=== PATIENT | female | born 1940 | race Caucasian/White ===

== ENCOUNTER → 2017-01-01 | Outpatient (CLI) | payer MEDICARE | END | disposition home or self-care (01) | LOC: CFH 09:49 | PROVIDERS: ATTEND Radiology Radiation Oncology | DX: D33.3 Benign neoplasm of cranial nerves (principal); I67.82 Cerebral ischemia; R90.82 White matter disease, unspecified | CPT/HCPCS: 70553; 82565 ==

== ENCOUNTER → 2017-01-10 | Outpatient (CLI) | payer MEDICARE | END | disposition home or self-care (01) | LOC: ROC 08:27 | PROVIDERS: ATTEND Radiology Radiation Oncology | DX: Z08 Encounter for follow-up examination after completed treatment for malignant neoplasm (principal); D33.3 Benign neoplasm of cranial nerves | CPT/HCPCS: G0463 ==

== ENCOUNTER → 2017-03-06 | Outpatient (CLI) | payer MEDICARE | END | disposition home or self-care (01) | LOC: CFH 10:42 | PROVIDERS: ATTEND Nurse Practitioner Family | DX: Z12.31 Encounter for screening mammogram for malignant neoplasm of breast (principal); M85.88 Other specified disorders of bone density and structure, other site | CPT/HCPCS: 77080; G0202 ==

== ENCOUNTER 2017-07-09 11:29 | Inpatient (IN) | payer MEDICARE ==
[~2017-07-09] VITALS: Ht 162.6 cm; Wt 70.2 kg
[2017-07-09] MEDS ORDERED: FENTANYL PF 100 MCG/2ML ONE ×4 (12:57→17:02)
[2017-07-09] MEDS: FENTANYL PF 100 MCG/2ML IVPush PRN ×2 (12:59→14:12)
[2017-07-09] MEDS ORDERED: SODIUM CHLORIDE FLUSH 10ML SYR IVF ONE (13:00)
[2017-07-09 13:07] LABS: BASOPHILS # (AUTO) 0.02 x10^3/uL (0-0.1); BASOPHILS % (AUTO) 0 % (0-1); EOSINOPHILS # (AUTO) 0.03 x10^3/uL (0-0.4); EOSINOPHILS % (AUTO) 0 % (1-7); LYMPHOCYTES # (AUTO) 0.88 x10^3/uL (1-3.4); LYMPHOCYTES % (AUTO) 13 % (22-44); MD NO; MEAN CORPUSCULAR HEMOGLOBIN 29.4 pg (27.0-34.8); MEAN CORPUSCULAR HGB CONC 33.2 g/dL (32.4-35.8); MEAN CORPUSCULAR VOLUME 88.7 fL (80-100); MEAN PLATELET VOLUME 8.3 fL (7.4-10.4); MONOCYTES # (AUTO) 0.34 x10^3/uL (0.2-0.8); MONOCYTES % (AUTO) 5 % (2-9); NEUTROPHILS # (AUTO) 5.78 x10^3/uL (1.8-6.8); NEUTROPHILS % (AUTO) 82 % (42-75); PLATELET COUNT 195 x10^3/uL (130-400); RED BLOOD COUNT 4.98 x10^6/uL (3.82-5.3)
[2017-07-09 13:14] LABS: INTERNATIONAL NORMALIZED RATIO 1.08 (0.93-1.1); PROTHROMBIN TIME 11.1 Seconds (9.6-11.5)
[2017-07-09] MEDS ORDERED: NS + 20MEQ KCL 1,000 ML IV SCH (13:17)
[2017-07-09 13:19] LABS: ALANINE AMINOTRANSFERASE 20 U/L (12-78); ALBUMIN 3.5 g/dL (3.4-5.0); ANION GAP 6 mmol/L (5-15); CHLORIDE 109 mmol/L (98-107); CREATININE 0.85 mg/dL (0.55-1.02)
[2017-07-09] MEDS ORDERED: ONDANSETRON 2MG/ML, 2ML ONE ×3 (13:21→17:05)
[2017-07-09 13:22] LABS: ALKALINE PHOSPHATASE 89 U/L (45-117); BILIRUBIN,TOTAL 0.6 mg/dL (0.2-1.0); TOTAL PROTEIN 6.7 g/dL (6.4-8.2)
[2017-07-09] MEDS ORDERED: ACETAMINOPHEN 325 MG TABLET PO PRN ×2 (13:30→17:30)
[2017-07-09] MEDS ORDERED: ONDANSETRON 2MG/ML, 2ML IVPush PRN ×2 (13:30→17:30)
[2017-07-09] MEDS ORDERED: HYDROcodone/APAP 5/325 TABLET PO PRN (13:30)
[2017-07-09] MEDS ORDERED: POLYETHYLENE GLYCOL 17 GM PACKET PO PRN (13:30)
[2017-07-09] MEDS ORDERED: DOCUSATE 100 MG CAPSULE PO PRN (13:30)
[2017-07-09 14:56] VITALS: BP 122/92
[2017-07-09] MEDS: morphine SULFATE 10 MG/ML, 1ML IVPush PRN ×3 (15:18→19:20)
[2017-07-09] MEDS ORDERED: MIDAZOLAM 1 MG/ML, 2ML ONE (17:01)
[2017-07-09] MEDS ORDERED: PROPOFOL 10 MG/ML, 20ML ONE (17:03)
[2017-07-09] MEDS ORDERED: ROCURONIUM 10 MG/ML,10ML ONE (17:04)
[2017-07-09] MEDS ORDERED: DEXAMETHASONE 4 MG/ML, 1ML ONE ×2 (17:05)
[2017-07-09] MEDS ORDERED: CEFAZOLIN 1,000 MG ONE ×2 (17:06)
[2017-07-09] MEDS ORDERED: SODIUM CHLORIDE 0.9% PF 10ML ONE (17:06)
[2017-07-09] MEDS ORDERED: FLUT9.9S NAS (17:15)
[2017-07-09] MEDS ORDERED: TRAM50TA2 PO (17:15)
[2017-07-09] MEDS ORDERED: CHOL10003 PO (17:15)
[2017-07-09] MEDS ORDERED: ESOM20CA57 PO (17:15)
[2017-07-09] MEDS ORDERED: VENL150C6 PO (17:15)
[2017-07-09] MEDS ORDERED: COLE1TAB PO (17:15)
[2017-07-09] MEDS ORDERED: LISI-170 PO (17:15)
[2017-07-09] MEDS ORDERED: FENTANYL PF 100 MCG/2ML IV PRN (17:30)
[2017-07-09] MEDS ORDERED: MEPERIDINE/PF 25MG/0.5ML IVPush PRN (17:30)
[2017-07-09] MEDS ORDERED: hydrALAzine 20 MG/ML, 1ML IV PRN (17:30)
[2017-07-09] MEDS ORDERED: HYDROmorphone 1 MG/ML, 1ML IV PRN (17:30)
[2017-07-09] MEDS ORDERED: LABETALOL 5MG/ML, 20ML IV PRN (17:30)
[2017-07-09] MEDS ORDERED: OXYcodone 5 MG/5 ML ORAL.SOL UDC PO PRN (17:30)
[2017-07-09] MEDS ORDERED: PROMETHAZINE 25 MG/ML, 1ML IV PRN (17:30)
[2017-07-09] MEDS ORDERED: NEOSTIGMINE 1 MG/ML, 10ML ONE (17:45)
[2017-07-09] MEDS ORDERED: GLYCOPYRROLATE 0.2MG/1ML, 5ML ONE (17:45)
[2017-07-09] MEDS ORDERED: PHENYLEPHRINE 10 MG/ML ONE (17:45)
[2017-07-09] MEDS ORDERED: morphine SULFATE 10 MG/ML, 1ML ONE (19:01)
[2017-07-09] MEDS ORDERED: OXYcodone 5 MG/5 ML ORAL.SOL UDC ONE (19:24)
[2017-07-09 20:20] VITALS: BP 132/90
[2017-07-09] MEDS ORDERED: morphine SULFATE 10 MG/ML, 1ML IV PRN (21:00)
[2017-07-09] MEDS ORDERED: ONDANSETRON 2MG/ML, 2ML IV PRN (21:00)
[2017-07-09] MEDS ORDERED: OXYcodone/APAP 5/325MG TABLET PO PRN (21:00)
[2017-07-09] MEDS: KETOROLAC 30 MG/1 ML IV SCH (21:52)
[2017-07-09] MEDS: DOCUSATE 100 MG CAPSULE PO SCH (21:52)
[2017-07-09] MEDS: SODIUM CHLORIDE FLUSH 10ML SYR IVF SCH (21:52)
[2017-07-10 00:10] VITALS: BP 102/70
[2017-07-10] MEDS: CEFAZOLIN PMX 1GM/50ML 50 ML IVPB SCH ×2 (02:09→09:02)
[2017-07-10 02:27] VITALS: BP 102/64
[2017-07-10] MEDS: ENOXAPARIN 40 MG/0.4 ML SQ SCH (05:25)
[2017-07-10] MEDS: KETOROLAC 30 MG/1 ML IV SCH (05:25)
[2017-07-10 05:47] LABS: BASOPHILS # (AUTO) 0.01 x10^3/uL (0-0.1); BASOPHILS % (AUTO) 0 % (0-1); EOSINOPHILS % (AUTO) 0 % (1-7); LYMPHOCYTES # (AUTO) 0.68 x10^3/uL (1-3.4); LYMPHOCYTES % (AUTO) 8 % (22-44); MD NO; MEAN CORPUSCULAR HEMOGLOBIN 29.9 pg (27.0-34.8); MEAN CORPUSCULAR HGB CONC 33.6 g/dL (32.4-35.8); MEAN CORPUSCULAR VOLUME 89.2 fL (80-100); MEAN PLATELET VOLUME 8.8 fL (7.4-10.4); MONOCYTES # (AUTO) 0.55 x10^3/uL (0.2-0.8); MONOCYTES % (AUTO) 7 % (2-9); NEUTROPHILS # (AUTO) 6.99 x10^3/uL (1.8-6.8); NEUTROPHILS % (AUTO) 85 % (42-75); PLATELET COUNT 167 x10^3/uL (130-400); RED BLOOD COUNT 4.25 x10^6/uL (3.82-5.3); RED CELL DISTRIBUTION WIDTH 13.1 % (9.6-15.2)
[2017-07-10 05:52] LABS: CHLORIDE 107 mmol/L (98-107)
[2017-07-10 06:00] LABS: ANION GAP 6 mmol/L (5-15); CALCIUM 7.9 mg/dL (8.5-10.1); CREATININE 0.95 mg/dL (0.55-1.02)
[2017-07-10] MEDS: SODIUM CHLORIDE FLUSH 10ML SYR IVF SCH ×2 (09:00→20:07)
[2017-07-10] MEDS: FLUTICASONE NASAL SPRAY 16GM NAS SCH (09:00)
[2017-07-10] MEDS: DOCUSATE 100 MG CAPSULE PO SCH ×2 (09:03→20:03)
[2017-07-10] MEDS: SENNA/DOCUSATE TABLET PO SCH (09:03)
[2017-07-10] MEDS: VENLAFAXINE 75 MG CAP ER PO SCH (09:03)
[2017-07-10] MEDS: LISINOPRIL 20 MG TABLET PO SCH (09:03)
[2017-07-10 09:55] VITALS: BP 115/54
[2017-07-10 15:03] VITALS: BP 95/59
[2017-07-10 19:15] VITALS: BP 107/60
[2017-07-10] MEDS: HYDROcodone/APAP 7.5-325MG/15ML UDC PO PRN (19:58)
[2017-07-11 02:41] VITALS: BP 114/70
[2017-07-11] MEDS: ENOXAPARIN 40 MG/0.4 ML SQ SCH (06:21)
[2017-07-11 07:40] VITALS: BP 108/72
[2017-07-11] MEDS: SODIUM CHLORIDE FLUSH 10ML SYR IVF SCH ×2 (09:00→22:31)
[2017-07-11] MEDS: FLUTICASONE NASAL SPRAY 16GM NAS SCH (09:03)
[2017-07-11] MEDS: LISINOPRIL 20 MG TABLET PO SCH (09:09)
[2017-07-11] MEDS: HYDROcodone/APAP 7.5-325MG/15ML UDC PO PRN ×3 (09:09→22:58)
[2017-07-11] MEDS: DOCUSATE 100 MG CAPSULE PO SCH ×2 (09:09→22:31)
[2017-07-11] MEDS: VENLAFAXINE 75 MG CAP ER PO SCH (09:09)
[2017-07-11] MEDS: SENNA/DOCUSATE TABLET PO SCH (09:09)
[2017-07-11 13:25] VITALS: BP 110/64
[2017-07-11] MEDS ORDERED: CALCIUM CARBONATE 500 MG TAB.CHEW PO PRN (15:00)
[2017-07-11 20:18] VITALS: BP 130/76
[2017-07-11] MEDS: FAMOTIDINE 20 MG TABLET PO SCH (22:31)
[2017-07-12 02:59] VITALS: BP 101/63
[2017-07-12] MEDS: HYDROcodone/APAP 7.5-325MG/15ML UDC PO PRN ×3 (03:20→11:14)
[2017-07-12] MEDS: ENOXAPARIN 40 MG/0.4 ML SQ SCH (06:04)
[2017-07-12] MEDS: FLUTICASONE NASAL SPRAY 16GM NAS SCH (08:47)
[2017-07-12] MEDS: FAMOTIDINE 20 MG TABLET PO SCH (08:54)
[2017-07-12] MEDS: VENLAFAXINE 75 MG CAP ER PO SCH (08:54)
[2017-07-12] MEDS: LISINOPRIL 20 MG TABLET PO SCH (08:54)
[2017-07-12] MEDS: DOCUSATE 100 MG CAPSULE PO SCH (08:54)
[2017-07-12] MEDS: SENNA/DOCUSATE TABLET PO SCH (08:55)
[2017-07-12] MEDS: SODIUM CHLORIDE FLUSH 10ML SYR IVF SCH (08:55)
[2017-07-12 09:19] VITALS: BP 104/68
[2017-07-12 11:45] VITALS: BP 105/68
== END 2017-07-12 12:02 | DRG 480 ==
LOC: SUATTDRO 13:08 → OR 13:23 → OBSVTOIN 13:28 → EDIP 13:28 → INTOOBSV 13:28 → 4NOR 14:39
PROVIDERS: ADMIT Family Medicine; ATTEND Family Medicine
PROC: 0QH736Z Insertion of Intramedullary Internal Fixation Device into Left Upper Femur, Percutaneous Approach (ICD-10-PCS; principal; 2017-07-09 17:30)
DX: S72.142A Displaced intertrochanteric fracture of left femur, initial encounter for closed fracture (principal); J96.20 Acute and chronic respiratory failure, unspecified whether with hypoxia or hypercapnia; F32.9 Major depressive disorder, single episode, unspecified; F41.9 Anxiety disorder, unspecified; I10 Essential (primary) hypertension; K21.9 Gastro-esophageal reflux disease without esophagitis; M16.0 Bilateral primary osteoarthritis of hip; W01.0XXA Fall on same level from slipping, tripping and stumbling without subsequent striking against object, initial encounter; Y93.89 Activity, other specified; Y92.89 Other specified places as the place of occurrence of the external cause; Z90.49 Acquired absence of other specified parts of digestive tract; Y99.8 Other external cause status
CPT/HCPCS: 36415; 71010; 76000; 80048; 80053; 83735; 85025; 85610; 96374; 96375; C1713; J0690; J1100; J1650; J1885; J2250; J2405; J2704; J2710; J3010; J3480; J3490; J2270; J2370

== ENCOUNTER → 2018-02-12 | Outpatient (CLI) | payer MEDICARE, OTHER ==
[~2018-02-12] MED LIST: CHOL10003 PO; COLE1TAB PO; ESOM20CA57 PO; FLUT9.9S NAS; LISI-170 PO; TRAM50TA2 PO; VENL150C6 PO
== END | disposition home or self-care (01) ==
LOC: CFH 14:08
PROVIDERS: ATTEND Internal Medicine Cardiovascular Disease
DX: Z01.810 Encounter for preprocedural cardiovascular examination (principal); I08.0 Rheumatic disorders of both mitral and aortic valves; R55 Syncope and collapse; I10 Essential (primary) hypertension; F41.9 Anxiety disorder, unspecified
CPT/HCPCS: 93306

== ENCOUNTER → 2018-02-20 | Outpatient (CLI) | payer MEDICARE, OTHER ==
[~2018-02-20] MED LIST changes: +REGADENOSON 0.4 MG/5 ML SYRINGE ONE
== END | disposition home or self-care (01) ==
LOC: CFH 11:59
PROVIDERS: ATTEND Internal Medicine Cardiovascular Disease
DX: Z01.810 Encounter for preprocedural cardiovascular examination (principal); I10 Essential (primary) hypertension; K21.9 Gastro-esophageal reflux disease without esophagitis
CPT/HCPCS: 78452; 93017; A9502; J2785

== ENCOUNTER 2018-11-11 16:15 | Inpatient (IN) | payer MEDICARE, OTHER ==
[~2018-11-11] VITALS: Ht 162.6 cm; Wt 62.8 kg
[~2018-11-11 16:15] MED LIST changes: -REGADENOSON 0.4 MG/5 ML SYRINGE ONE
[2018-11-11] MEDS ORDERED: SODIUM CHLORIDE FLUSH 10ML SYR IVF ONE (16:30)
--- NOTE | 2018-11-11 16:46 | NUR ---
Pt presents to ED by EMS with c/o "near syncopal event while sitting on toilet to have a bowel movement." Pt did not fall. No trauma occured per pt. Per pt's spouse, "she was playing cards with some friends, didn't feel well, went to the bathroom, and felt like she was going to faint. She does have some memory problems, but her speech is not typically like this." Pt has inappropriate speech and difficulty finding words. Pt has 5/5 net programmer analyst strength equal bilaterally, and 5/5 strength in lower extremities. No facial palsy observed. No limb ataxia observed. CMS intact. Eyes are PERRLA at 3 mm. Pt transported to CT on gurney. PIV 20g placed in right AC CIVIL ENGINEERING DRAFTSPERSON. Both bed rails up for safety measures, pt placed on nuclear equipment operator, NIBP, and continous pulse ox.
[2018-11-11 16:50] LABS: BASOPHILS # (AUTO) 0.05 x10^3/uL (0-0.1); BASOPHILS % (AUTO) 1 % (0-1); EOSINOPHILS # (AUTO) 0.06 x10^3/uL (0-0.4); EOSINOPHILS % (AUTO) 1 % (1-7); LYMPHOCYTES # (AUTO) 0.98 x10^3/uL (1-3.4); LYMPHOCYTES % (AUTO) 16 % (22-44); MD NO; MEAN CORPUSCULAR HEMOGLOBIN 27.7 pg (27.0-34.8); MEAN CORPUSCULAR HGB CONC 33.6 g/dL (32.4-35.8); MEAN CORPUSCULAR VOLUME 82.7 fL (80-100); MEAN PLATELET VOLUME 8.6 fL (7.4-10.4); MONOCYTES % (AUTO) 5 % (2-9); NEUTROPHILS # (AUTO) 4.58 x10^3/uL (1.8-6.8); NEUTROPHILS % (AUTO) 77 % (42-75); PLATELET COUNT 208 x10^3/uL (130-400); RED BLOOD COUNT 5.05 x10^6/uL (3.82-5.3); RED CELL DISTRIBUTION WIDTH 17.5 % (9.6-15.2)
[2018-11-11 16:58] LABS: INTERNATIONAL NORMALIZED RATIO 1.15 (0.93-1.1)
[2018-11-11 16:59] LABS: ALBUMIN 3.7 g/dL (3.4-5.0); ANION GAP 8 mmol/L (5-15); CALCIUM 8.1 mg/dL (8.5-10.1); CHLORIDE 108 mmol/L (98-107); CREATININE 1.23 mg/dL (0.55-1.02)
[2018-11-11] MEDS ORDERED: POTASSIUM CHLORIDE 40 MEQ in SODIUM CHLORIDE 0.9% 500 ML IV ONE (17:00)
[2018-11-11 17:03] LABS: TROPONIN I < 0.015 ng/mL (0.000-0.045)
--- NOTE | 2018-11-11 17:18 | NUR ---
Pt transported on gurney to MRI. Pt not in room at this time.
[2018-11-11] MEDS ORDERED: APIX2.5T PO (17:21)
[2018-11-11] MEDS ORDERED: AMLO10TA8 PO (17:21)
[2018-11-11] MEDS ORDERED: ASPI-614 PO (17:21)
[2018-11-11] MEDS ORDERED: POTASSIUM CHLORIDE 10% 40 MEQ/30 ML UDC PO ONE (17:30)
[2018-11-11] MEDS ORDERED: POTASSIUM CHLORIDE 10% 40 MEQ/30 ML UDC ONE (17:50)
--- NOTE | 2018-11-11 17:57 | NUR ---
In room assisting [facility] neurologist with neuro function test. Provided pt medication per EMAR.
[2018-11-11] MEDS ORDERED: hydrALAzine 20 MG/ML, 1ML IVPush PRN (19:00)
[2018-11-11] MEDS ORDERED: ACETAMINOPHEN 325 MG TABLET PO PRN (19:00)
[2018-11-11] MEDS ORDERED: ONDANSETRON ODT 4 MG PO PRN (19:00)
[2018-11-11] MEDS ORDERED: DOCUSATE 100 MG CAPSULE PO PRN (19:00)
[2018-11-11] MEDS ORDERED: LIDODERM 5% PATCH TD PRN (19:00)
--- NOTE | 2018-11-11 19:26 | NUR ---
ATTEMPTED TO CALL REPORT TO FLOOR RN, UNAVAILABLE AT THIS TIME.
[2018-11-11 19:28] LABS: HEMOGLOBIN A1C 5.6 % (4.2-6.3)
[2018-11-11] MEDS: SODIUM CHLORIDE 0.9% 1,000 ML IV SCH (20:18)
[2018-11-11 22:48] VITALS: BP 123/73
[2018-11-11 22:55] LABS: TROPONIN I < 0.015 ng/mL (0.000-0.045)
[2018-11-11 23:48] LABS: MICROSCOPIC NOT IND
[2018-11-11 23:51] LABS: CULTURE INDICATED? NO
[2018-11-12 03:15] VITALS: BP 127/84
[2018-11-12] MEDS: SODIUM CHLORIDE 0.9% 1,000 ML IV SCH ×2 (03:27→15:00)
[2018-11-12 03:40] VITALS: BP 127/82
[2018-11-12 03:42] VITALS: BP 115/76
[2018-11-12 04:45] LABS: BASOPHILS # (AUTO) 0.04 x10^3/uL (0-0.1); BASOPHILS % (AUTO) 1 % (0-1); EOSINOPHILS % (AUTO) 2 % (1-7); LYMPHOCYTES # (AUTO) 1.64 x10^3/uL (1-3.4); LYMPHOCYTES % (AUTO) 33 % (22-44); MD NO; MEAN CORPUSCULAR HEMOGLOBIN 28.2 pg (27.0-34.8); MEAN CORPUSCULAR HGB CONC 33.8 g/dL (32.4-35.8); MEAN CORPUSCULAR VOLUME 83.5 fL (80-100); MEAN PLATELET VOLUME 8.6 fL (7.4-10.4); MONOCYTES # (AUTO) 0.52 x10^3/uL (0.2-0.8); MONOCYTES % (AUTO) 11 % (2-9); NEUTROPHILS # (AUTO) 2.61 x10^3/uL (1.8-6.8); NEUTROPHILS % (AUTO) 53 % (42-75); PLATELET COUNT 182 x10^3/uL (130-400); RED BLOOD COUNT 4.49 x10^6/uL (3.82-5.3); RED CELL DISTRIBUTION WIDTH 17.7 % (9.6-15.2)
[2018-11-12 04:59] LABS: ANION GAP 4 mmol/L (5-15); CHLORIDE 113 mmol/L (98-107)
[2018-11-12 05:05] LABS: CREATININE 0.84 mg/dL (0.55-1.02); TROPONIN I < 0.015 ng/mL (0.000-0.045)
[2018-11-12 07:30] VITALS: BP 128/73
[2018-11-12] MEDS ORDERED: ASPIRIN 81 MG TABLET CHEW PO/NG SCH (09:00)
[2018-11-12] MEDS ORDERED: APIX5TAB PO (10:00)
[2018-11-12] MEDS ORDERED: APIXABAN 5 MG TABLET PO SCH (12:00)
[2018-11-12 14:03] VITALS: BP 123/76
[2018-11-13] MEDS ORDERED: VENLAFAXINE XR 37.5MG CAP.ER.24H PO SCH (09:00)
[2018-11-13] MEDS ORDERED: AMLODIPINE 5 MG TABLET PO SCH (09:00)
[2018-11-13] MEDS ORDERED: PANTOPRAZOLE 20MG TABLET PO SCH (09:00)
[2018-11-13] MEDS ORDERED: LISINOPRIL 20 MG TABLET PO SCH (09:00)
[2018-11-13] MEDS ORDERED: ASPIRIN 81 MG TABLET CHEW PO SCH (09:00)
== END 2018-11-12 16:30 | disposition home or self-care (01) | DRG 69 ==
LOC: ED 16:54 → EDIP 17:21 → 4WST 19:50 → DCLOUNGE 11-12 16:10
PROVIDERS: ADMIT Hospitalist; ATTEND Hospitalist
DX: G45.9 Transient cerebral ischemic attack, unspecified (principal); N17.0 Acute kidney failure with tubular necrosis; R47.01 Aphasia; I95.9 Hypotension, unspecified; G46.0 Middle cerebral artery syndrome; I10 Essential (primary) hypertension; E87.6 Hypokalemia; R73.9 Hyperglycemia, unspecified; F41.9 Anxiety disorder, unspecified; K21.9 Gastro-esophageal reflux disease without esophagitis; K44.9 Diaphragmatic hernia without obstruction or gangrene; Z79.01 Long term (current) use of anticoagulants; Z82.3 Family history of stroke; Z86.711 Personal history of pulmonary embolism; Z86.718 Personal history of other venous thrombosis and embolism; Z87.891 Personal history of nicotine dependence; Z90.49 Acquired absence of other specified parts of digestive tract; Z90.89 Acquired absence of other organs; Z82.49 Family history of ischemic heart disease and other diseases of the circulatory system
CPT/HCPCS: 36415; 70450; 70551; 71045; 80047; 80048; 81003; 82040; 82962; 83036; 83735; 84484; 85025; 85610; 85730; 93005; 93880; 99291; G0378; J7030

== ENCOUNTER → 2018-12-12 | Outpatient (CLI) | payer MEDICARE, OTHER ==
[~2018-12-12] MED LIST changes: +AMLO10TA8 PO; +APIX2.5T PO; +APIX5TAB PO; +ASPI-614 PO
== END | disposition home or self-care (01) ==
LOC: ROC 08:45
PROVIDERS: ATTEND Radiology Radiation Oncology
DX: Z02.9 Encounter for administrative examinations, unspecified (principal)

== ENCOUNTER 2019-08-12 15:42 | Observation (INO) | payer MEDICARE, OTHER ==
[~2019-08-12] VITALS: Ht 162.6 cm; Wt 60.8 kg
[~2019-08-12 15:42] MED LIST changes: +CEFD300C37 PO; +DILT360T PO; +LACT1TAB13 PO; +LISI5TAB7 PO; +SIMV20TA PO
[2019-08-12] MEDS ORDERED: SODIUM CHLORIDE 0.9% 1,000ML IVBOLUS ONE (17:00)
--- NOTE | 2019-08-12 17:00 | NUR ---
Pt here for new onset of syncope episodes. Pt reports she has passed out and has not been feeling well. Pt reports she was diagnosed with afibb. Pt resting in room. Awatiing further orders. labs drawn and given to lab.
[2019-08-12 17:19] LABS: BASOPHILS # (AUTO) 0.04 x10^3/uL (0-0.1); BASOPHILS % (AUTO) 0 % (0-1); EOSINOPHILS # (AUTO) 0.18 x10^3/uL (0-0.4); EOSINOPHILS % (AUTO) 1 % (1-7); LYMPHOCYTES # (AUTO) 0.67 x10^3/uL (1-3.4); LYMPHOCYTES % (AUTO) 4 % (22-44); MD NO; MEAN CORPUSCULAR HEMOGLOBIN 26.2 pg (27.0-34.8); MEAN CORPUSCULAR HGB CONC 32.1 g/dL (32.4-35.8); MEAN CORPUSCULAR VOLUME 81.5 fL (80-100); MEAN PLATELET VOLUME 8.8 fL (7.4-10.4); MONOCYTES # (AUTO) 0.92 x10^3/uL (0.2-0.8); MONOCYTES % (AUTO) 6 % (2-9); NEUTROPHILS # (AUTO) 14.71 x10^3/uL (1.8-6.8); NEUTROPHILS % (AUTO) 89 % (42-75); PLATELET COUNT 251 x10^3/uL (130-400); RED BLOOD COUNT 5.11 x10^6/uL (3.82-5.3); RED CELL DISTRIBUTION WIDTH 15.6 % (9.6-15.2)
[2019-08-12 17:24] LABS: INTERNATIONAL NORMALIZED RATIO 1.11 (0.93-1.1); PROTHROMBIN TIME 11.8 Seconds (9.6-11.5)
[2019-08-12 17:35] LABS: ALANINE AMINOTRANSFERASE 24 U/L (12-78); ALBUMIN 3.7 g/dL (3.4-5.0); ANION GAP 10 mmol/L (5-15); CALCIUM 8.6 mg/dL (8.5-10.1); CHLORIDE 109 mmol/L (98-107); CREATININE 1.47 mg/dL (0.55-1.02)
--- NOTE | 2019-08-12 17:39 | NUR ---
pt medicated per emar.
[2019-08-12 17:41] LABS: ALKALINE PHOSPHATASE 169 U/L (45-117); BILIRUBIN,TOTAL 0.9 mg/dL (0.2-1.0); TOTAL PROTEIN 7.4 g/dL (6.4-8.2); TROPONIN I < 0.015 ng/mL (0.000-0.045)
[2019-08-12] MEDS ORDERED: SODIUM CHLORIDE FLUSH 10ML SYR IVF ONE (18:00)
--- NOTE | 2019-08-12 18:08 | NUR ---
TASK RN: UA SENT TO LAB. PT AMBULATORY WITH X 1 ASSIST TO RESTROOM. PT STILL REPORTS DIZZINESS AT THIS TIME. AT BEDSIDE FOR REASSESSMENT AND NOTIFIED BY THIS RN OF PT'S BP 170S SYSTOLIC. AWARE.
[2019-08-12 19:11] LABS: MICROSCOPIC NOT IND
[2019-08-12 19:15] LABS: CULTURE INDICATED? NO
[2019-08-12 21:27] VITALS: BP 160/102
[2019-08-12 21:37] VITALS: BP 163/86
[2019-08-12 21:39] VITALS: BP 138/106
[2019-08-12] MEDS ORDERED: ONDANSETRON 2MG/ML, 2ML IVPush PRN (22:00)
[2019-08-12] MEDS ORDERED: BISACODYL 10 MG SUPP PR PRN (22:00)
[2019-08-12] MEDS: SODIUM CHLORIDE 0.9% 1,000 ML IV SCH (22:37)
[2019-08-13 00:15] LABS: TROPONIN I < 0.015 ng/mL (0.000-0.045)
[2019-08-13 00:26] VITALS: BP 166/96
[2019-08-13 05:11] LABS: ANION GAP 8 mmol/L (5-15); CALCIUM 7.8 mg/dL (8.5-10.1); CHLORIDE 110 mmol/L (98-107)
[2019-08-13 05:16] LABS: BASOPHILS # (AUTO) 0.04 x10^3/uL (0-0.1); BASOPHILS % (AUTO) 1 % (0-1); EOSINOPHILS # (AUTO) 0.01 x10^3/uL (0-0.4); EOSINOPHILS % (AUTO) 0 % (1-7); LYMPHOCYTES # (AUTO) 1.37 x10^3/uL (1-3.4); LYMPHOCYTES % (AUTO) 22 % (22-44); MD NO; MEAN CORPUSCULAR HEMOGLOBIN 26.4 pg (27.0-34.8); MEAN CORPUSCULAR VOLUME 82.6 fL (80-100); MEAN PLATELET VOLUME 8.4 fL (7.4-10.4); MONOCYTES # (AUTO) 0.57 x10^3/uL (0.2-0.8); MONOCYTES % (AUTO) 9 % (2-9); NEUTROPHILS # (AUTO) 4.34 x10^3/uL (1.8-6.8); NEUTROPHILS % (AUTO) 69 % (42-75); PLATELET COUNT 244 x10^3/uL (130-400); RED BLOOD COUNT 4.58 x10^6/uL (3.82-5.3); RED CELL DISTRIBUTION WIDTH 15.8 % (9.6-15.2)
[2019-08-13 05:19] LABS: CHOL/HDL RATIO 2.1; CHOLESTEROL, TOTAL 136 mg/dL (140-239); CREATININE 0.87 mg/dL (0.55-1.02); HDL CHOL % 47 % (28-40); HDL CHOLESTEROL (DIRECT) 64 mg/dL (40-60); LDL CHOLESTEROL,CALCULATED 58 mg/dL (54-169); LDL/HDL RATIO 0.9 (0.5-3.0); TRIGLYCERIDES 72 mg/dL (50-200); TROPONIN I < 0.015 ng/mL (0.000-0.045); VLDL CHOLESTEROL 14 mg/dL (0-25)
[2019-08-13] MEDS: SODIUM CHLORIDE 0.9% 1,000 ML IV SCH ×2 (05:33→12:53)
[2019-08-13 06:46] VITALS: BP 170/73
[2019-08-13] MEDS ORDERED: POTASSIUM CHLORIDE 20 MEQ TAB.ER.PRT PO ONE (07:30)
[2019-08-13] MEDS ORDERED: ASPIRIN 81 MG TABLET CHEW PO/NG SCH (09:00)
[2019-08-13 10:55] VITALS: BP 165/97
[2019-08-13 12:58] VITALS: BP_SYST 130; BP_SYST 148; BP_DIAS 75; BP_DIAS 80; BP_DIAS 83
== END 2019-08-13 17:55 | disposition home health service (06) ==
LOC: ED 18:38 → EDIP 21:00 → INTOOBSV 21:00 → 4WST 21:17
PROVIDERS: ADMIT Internal Medicine; ATTEND Internal Medicine
DX: I95.1 Orthostatic hypotension (principal); G93.41 Metabolic encephalopathy; F45.8 Other somatoform disorders; I48.0 Paroxysmal atrial fibrillation; D68.59 Other primary thrombophilia; K21.9 Gastro-esophageal reflux disease without esophagitis; F33.9 Major depressive disorder, recurrent, unspecified; N17.0 Acute kidney failure with tubular necrosis; D72.829 Elevated white blood cell count, unspecified; R11.2 Nausea with vomiting, unspecified; E86.0 Dehydration; E87.6 Hypokalemia; I11.0 Hypertensive heart disease with heart failure; I50.32 Chronic diastolic (congestive) heart failure; Z79.01 Long term (current) use of anticoagulants; Z86.73 Personal history of transient ischemic attack (TIA), and cerebral infarction without residual deficits; Z87.891 Personal history of nicotine dependence
CPT/HCPCS: 36415; 70450; 70551; 71045; 80048; 80053; 80061; 81003; 83605; 84145; 84443; 84484; 85025; 85610; 92610; 93005; 93306; 96360; 96361; 97162; 97165; 99285; G0378; J7030

== ENCOUNTER → 2019-12-04 | Outpatient (CLI) | payer MEDICARE ==
[~2019-12-04] MED LIST changes: +REGADENOSON 0.4 MG/5 ML SYRINGE ONE
== END | disposition home or self-care (01) ==
LOC: CFH 11:48
PROVIDERS: ATTEND Registered Nurse
DX: I48.91 Unspecified atrial fibrillation (principal); R55 Syncope and collapse
CPT/HCPCS: 78452; 93017; A9502; J2785

== ENCOUNTER 2020-11-05 07:08 | Observation (INO) | payer MEDICARE ==
[~2020-11-05] VITALS: Ht 162.6 cm; Wt 77.2 kg
[~2020-11-05 07:08] MED LIST changes: +AMLO-211 PO; -AMLO10TA8 PO; -REGADENOSON 0.4 MG/5 ML SYRINGE ONE
[2020-11-05] MEDS ORDERED: CEFAZOLIN PMX 1GM/50ML 50 ML ONE (07:51)
[2020-11-05] MEDS ORDERED: LIDOCAINE 2%, 20ML ONE ×2 (07:51→10:00)
[2020-11-05] MEDS ORDERED: FENTANYL PF 100 MCG/2ML ONE (07:51)
[2020-11-05] MEDS ORDERED: MIDAZOLAM 1 MG/ML, 5ML ONE (07:51)
[2020-11-05] MEDS ORDERED: CEFAZOLIN 1,000 MG ONE (07:51)
[2020-11-05] MEDS ORDERED: METO50TA4 PO (07:56)
[2020-11-05] MEDS ORDERED: OXYB5TAB33 PO (07:58)
[2020-11-05] MEDS ORDERED: ASPI-963 PO (07:59)
[2020-11-05] MEDS ORDERED: DIGO250T3 PO (08:00)
[2020-11-05] MEDS ORDERED: MECO10005 PO (08:01)
[2020-11-05 08:03] VITALS: BP 150/116
[2020-11-05 08:41] LABS: BASOPHILS % (AUTO) 1 % (0-1); EOSINOPHILS % (AUTO) 2 % (1-7); LYMPHOCYTES % (AUTO) 18 % (22-44); MEAN CORPUSCULAR HEMOGLOBIN 20.5 pg (27.0-34.8); MEAN CORPUSCULAR HGB CONC 30.6 g/dL (32.4-35.8); MEAN PLATELET VOLUME 9.2 fL (7.4-10.4); MONOCYTES % (AUTO) 9 % (2-9); NEUTROPHILS % (AUTO) 70 % (42-75); PLATELET COUNT 228 x10^3/uL (130-400); RED BLOOD COUNT 5.02 x10^6/uL (3.82-5.3); RED CELL DISTRIBUTION WIDTH 30.8 % (9.6-15.2)
[2020-11-05 08:48] LABS: INTERNATIONAL NORMALIZED RATIO 1.16 (0.93-1.1); PROTHROMBIN TIME 12.4 Seconds (9.6-11.5)
[2020-11-05 09:07] LABS: MD MORPH REVIEW ONLY
[2020-11-05 09:08] LABS: <PLATELET ESTIMATE> ADEQUATE; <PLT MORPHOLOGY> NORMAL PLT MORPH; ANISOCYTOSIS 2+; HYPOCHROMIA 1+; MICROCYTOSIS 2+
[2020-11-05 09:51] LABS: ALANINE AMINOTRANSFERASE 17 U/L (12-78); ALBUMIN 3.7 g/dL (3.4-5.0); ANION GAP 4 mmol/L (5-15); CALCIUM 8.6 mg/dL (8.5-10.1); CHLORIDE 110 mmol/L (98-107); CREATININE 1.11 mg/dL (0.55-1.02)
[2020-11-05 09:53] LABS: ALKALINE PHOSPHATASE 75 U/L (45-117); BILIRUBIN,TOTAL 0.6 mg/dL (0.2-1.0); TOTAL PROTEIN 6.7 g/dL (6.4-8.2)
[2020-11-05] MEDS ORDERED: ONDANSETRON 2MG/ML, 2ML IV PRN (10:30)
[2020-11-05] MEDS ORDERED: HOLD MEDICATION MC PRN (10:30)
[2020-11-05] MEDS: SODIUM CHLORIDE 0.9% 1,000 ML IV SCH ×2 (10:50→16:00)
[2020-11-05 10:51] VITALS: BP 137/90
[2020-11-05] MEDS: METOPROLOL SUCCINATE 100 MG TAB.ER.24H PO SCH (12:07)
[2020-11-05 13:49] VITALS: BP 152/98
[2020-11-05 19:35] VITALS: BP 141/97
[2020-11-05] MEDS: SODIUM CHLORIDE FLUSH 10ML SYR IVF SCH (20:07)
[2020-11-05] MEDS: CEFAZOLIN PMX 1GM/50ML 50 ML IVPB SCH (20:07)
[2020-11-05] MEDS: OXYBUTYNIN CHLORIDE 5 MG TABLET PO SCH (20:07)
[2020-11-05] MEDS ORDERED: ZOLPIDEM 5MG TABLET PO PRN (21:00)
[2020-11-05] MEDS ORDERED: SIMVASTATIN 20 MG TABLET PO SCH (21:00)
[2020-11-06 01:53] VITALS: BP 145/81
[2020-11-06] MEDS: CEFAZOLIN PMX 1GM/50ML 50 ML IVPB SCH (03:50)
[2020-11-06 07:49] VITALS: BP 135/93
[2020-11-06] MEDS: METOPROLOL SUCCINATE 100 MG TAB.ER.24H PO SCH (08:23)
[2020-11-06] MEDS: OXYBUTYNIN CHLORIDE 5 MG TABLET PO SCH (08:24)
[2020-11-06] MEDS ORDERED: ACET325T26 PO (08:27)
[2020-11-06] MEDS ORDERED: METO50TA4 PO (08:27)
[2020-11-06] MEDS ORDERED: LISI5TAB7 PO (08:27)
[2020-11-06] MEDS: SODIUM CHLORIDE FLUSH 10ML SYR IVF SCH (09:00)
[2020-11-06] MEDS ORDERED: DILTIAZEM 120 MG CAP.ER.24H PO SCH (09:00)
[2020-11-06] MEDS ORDERED: LISINOPRIL 5 MG TABLET PO SCH (09:00)
[2020-11-06] MEDS ORDERED: DIGOXIN 0.25 MG TABLET PO SCH (09:00)
[2020-11-06] MEDS ORDERED: MECOBALAMIN 5000 MCG HOMEMEDPO SCH (09:00)
[2020-11-06] MEDS ORDERED: VENLAFAXINE 75 MG CAP ER PO SCH (09:00)
== END 2020-11-06 13:00 | disposition home or self-care (01) ==
LOC: CACL 07:08 → ORIP 10:22 → 5SO 11:18 → CACL 11:29 → 5SO 11:49 → DCLOUNGE 11-06 12:38
PROVIDERS: ADMIT Internal Medicine Cardiovascular Disease; ATTEND Internal Medicine Cardiovascular Disease
DX: I49.5 Sick sinus syndrome (principal); I48.19 Other persistent atrial fibrillation; I10 Essential (primary) hypertension; E78.00 Pure hypercholesterolemia, unspecified; Z87.891 Personal history of nicotine dependence; Z79.01 Long term (current) use of anticoagulants; Z79.899 Other long term (current) drug therapy
CPT/HCPCS: 33207; 36005; 36415; 71045; 71046; 80053; 85025; 85610; 93005; 96361; 96365; 96366; 99156; 99157; C1786; C1892; C1900; G0378; J0690; J2250; J3010; J3490; J7030; Q9967

== ENCOUNTER → 2020-11-30 | Outpatient (CLI) | payer MEDICARE ==
[~2020-11-30] MED LIST changes: +ACET325T26 PO; +ASPI-963 PO; +CYAN50003 PO; +DIGO250T3 PO; +MECO10005 PO; +METO25TA91 PO; +METO50TA4 PO; +OMNIPAQUE 350 MG/ML, 150 ML BOTTLE ONE; +OXYB5TAB33 PO
== END | disposition home or self-care (01) ==
LOC: CFH 14:59
PROVIDERS: ATTEND Internal Medicine Cardiovascular Disease
DX: I48.91 Unspecified atrial fibrillation (principal); K44.9 Diaphragmatic hernia without obstruction or gangrene; I77.810 Thoracic aortic ectasia
CPT/HCPCS: 75572; Q9967

== ENCOUNTER 2021-01-13 06:12 | Day surgery (SDC) | payer MEDICARE ==
[~2021-01-13 06:12] MED LIST changes: -OMNIPAQUE 350 MG/ML, 150 ML BOTTLE ONE
[2021-01-13] MEDS ORDERED: LISI5TAB7 PO (06:44)
[2021-01-13] MEDS ORDERED: SIMV20TA PO (06:44)
[2021-01-13] MEDS ORDERED: SODIUM CHLORIDE 0.9% 1,000 ML IV ONE (07:00)
[2021-01-13 07:30] LABS: BASOPHILS % (AUTO) 1 % (0-1); EOSINOPHILS % (AUTO) 2 % (1-7); LYMPHOCYTES % (AUTO) 18 % (22-44); MEAN CORPUSCULAR HEMOGLOBIN 20.3 pg (27.0-34.8); MEAN CORPUSCULAR HGB CONC 30.5 g/dL (32.4-35.8); MEAN PLATELET VOLUME 8.8 fL (7.4-10.4); MONOCYTES % (AUTO) 9 % (2-9); NEUTROPHILS % (AUTO) 71 % (42-75); PLATELET COUNT 291 x10^3/uL (130-400); RED BLOOD COUNT 4.87 x10^6/uL (3.82-5.3); RED CELL DISTRIBUTION WIDTH 25.9 % (9.6-15.2)
[2021-01-13 07:34] LABS: ANION GAP 6 mmol/L (5-15); CALCIUM 8.7 mg/dL (8.5-10.1); CHLORIDE 108 mmol/L (98-107); CREATININE 0.91 mg/dL (0.55-1.02)
[2021-01-13] MEDS ORDERED: PROPOFOL 10 MG/ML, 20ML ONE (07:46)
[2021-01-13 07:54] LABS: ANISOCYTOSIS 2+; HYPOCHROMIA 1+; MICROCYTOSIS 2+
[2021-01-13 07:55] LABS: OVALOCYTES 1+
[2021-01-13 07:56] LABS: <PLATELET ESTIMATE> ADEQUATE; <PLT MORPHOLOGY> NORMAL PLT MORPH
== END 2021-01-13 09:34 | disposition home or self-care (01) ==
LOC: CACL 06:12
PROVIDERS: ATTEND Internal Medicine Cardiovascular Disease
DX: I34.0 Nonrheumatic mitral (valve) insufficiency (principal); I48.91 Unspecified atrial fibrillation; I10 Essential (primary) hypertension; K21.9 Gastro-esophageal reflux disease without esophagitis; E78.5 Hyperlipidemia, unspecified; F17.210 Nicotine dependence, cigarettes, uncomplicated; E66.3 Overweight; Z68.23 Body mass index [BMI] 23.0-23.9, adult; Z79.01 Long term (current) use of anticoagulants; Z79.82 Long term (current) use of aspirin; Z79.891 Long term (current) use of opiate analgesic; Z79.899 Other long term (current) drug therapy; Z95.0 Presence of cardiac pacemaker
CPT/HCPCS: 36415; 71046; 80048; 85025; 93312; 93325; J2704